=== PATIENT | female | born 1980 | race Caucasian/White ===

== ENCOUNTER 2017-02-03 15:15 | Emergency (ER) | payer OTHER ==
[~2017-02-03] VITALS: Ht 170.2 cm; Wt 123.4 kg
[2017-02-03 18:02] VITALS: BP 154/108
== END 2017-02-03 18:03 | disposition home or self-care (01) ==
LOC: ED 15:15
DX: S66.911A Strain of unspecified muscle, fascia and tendon at wrist and hand level, right hand, initial encounter (principal); L25.9 Unspecified contact dermatitis, unspecified cause; R03.0 Elevated blood-pressure reading, without diagnosis of hypertension; W19.XXXA Unspecified fall, initial encounter; Y93.89 Activity, other specified; Y92.89 Other specified places as the place of occurrence of the external cause; Y99.8 Other external cause status
CPT/HCPCS: A4570

== ENCOUNTER 2017-03-20 03:25 | Emergency (ER) | payer OTHER ==
[2017-03-20 05:22] LABS: BASOPHIL % 0.2 % (0-2); PLATELET COUNT 319 x10^3mcL (130-400); RED CELL DISTRIBUTION WIDTH 13.5 % (11.5-14.5)
[2017-03-20 05:30] LABS: CALCIUM 8.3 mg/dL (8.5-10.1); CARBON DIOXIDE 26.4 mmol/L (21-32); CHLORIDE SERUM 100 mmol/L (98-107); CREATININE SERUM 0.8 mg/dL (0.6-1.0); GFR1 > 60 mL/min; GLUCOSE SERUM 190 mg/dL (74-106); POTASSIUM SERUM 3.6 mmol/L (3.5-5.1); SODIUM SERUM 135 mmol/L (136-145)
[2017-03-20 05:35] LABS: ALKALINE PHOSPHATASE 77 U/L (46-116); ALT/SGPT 47 U/L (14-59); AST/SGOT 29 U/L (15-37); BILIRUBIN TOTAL 0.51 mg/dL (0.20-1.00); TOTAL PROTEIN, SERUM 7.4 g/dL (6.4-8.2)
[2017-03-20 05:36] LABS: ALBUMIN 3.1 g/dL (3.4-5.0)
[2017-03-20 06:47] VITALS: BP 142/83
== END 2017-03-20 06:47 | disposition home or self-care (01) ==
LOC: ED 03:25
PROVIDERS: Emergency Medicine
DX: N39.0 Urinary tract infection, site not specified (principal); K21.9 Gastro-esophageal reflux disease without esophagitis; E66.01 Morbid (severe) obesity due to excess calories; Z90.49 Acquired absence of other specified parts of digestive tract
CPT/HCPCS: 36415; J1885; Q0092

== ENCOUNTER 2017-10-12 21:29 | Emergency (ER) | payer OTHER ==
[~2017-10-12] VITALS: Ht 170.2 cm; Wt 119.7 kg
[2017-10-12 22:20] VITALS: Ht 170.2 cm; Wt 119.7 kg
[2017-10-12 23:28] VITALS: BP 140/90
== END 2017-10-12 23:28 | disposition home or self-care (01) ==
LOC: ED 21:29
DX: M25.531 Pain in right wrist (principal); Z90.49 Acquired absence of other specified parts of digestive tract

== ENCOUNTER 2018-09-11 08:47 | Emergency (ER) | payer OTHER ==
[~2018-09-11] VITALS: Ht 170.2 cm; Wt 122.5 kg
[2018-09-11 08:54] VITALS: Ht 170.2 cm; Wt 122.5 kg
[2018-09-11 10:14] LABS: CALCIUM 8.8 mg/dL (8.5-10.1); CARBON DIOXIDE 25.2 mmol/L (21-32); CHLORIDE SERUM 94 mmol/L (98-107); CREATININE SERUM 0.9 mg/dL (0.6-1.0); GFR1 > 60 mL/min; GLUCOSE SERUM 231 mg/dL (74-106); POTASSIUM SERUM 3.7 mmol/L (3.5-5.1); SODIUM SERUM 127 mmol/L (136-145)
[2018-09-11 10:18] LABS: ALKALINE PHOSPHATASE 91 U/L (46-116); ALT/SGPT 42 U/L (14-59); AST/SGOT 49 U/L (15-37); BILIRUBIN TOTAL 0.4 mg/dL (0.20-1.00)
[2018-09-11 10:18] LABS: UA SPECIFIC GRAVITY 1.025 (1.005-1.035); microscopic required? YES; urine erythrocyte 2+ (NEGATIVE)
[2018-09-11 10:23] LABS: ALBUMIN 2.8 g/dL (3.4-5.0); TOTAL PROTEIN, SERUM 8.3 g/dL (6.4-8.2)
[2018-09-11 12:18] LABS: BASOPHIL % 0.2 % (0-2); PLATELET COUNT 271 x10^3mcL (130-400); RED CELL DISTRIBUTION WIDTH 13.1 % (11.5-14.5)
[2018-09-11 12:42] VITALS: BP 115/78
== END 2018-09-11 12:42 | disposition home or self-care (01) ==
LOC: ED 08:47
PROVIDERS: Specialist
DX: N10 Acute pyelonephritis (principal); Z90.49 Acquired absence of other specified parts of digestive tract; Z98.890 Other specified postprocedural states
CPT/HCPCS: 87804; J0696; J1885

== ENCOUNTER 2018-09-16 20:42 | Emergency (ER) | payer OTHER ==
[~2018-09-16] VITALS: Ht 170.2 cm; Wt 124.7 kg
[2018-09-16 20:54] VITALS: Ht 170.2 cm; Wt 124.7 kg
[2018-09-16 22:28] VITALS: BP 139/96
== END 2018-09-16 22:28 | disposition home or self-care (01) ==
LOC: ED 20:42
DX: T36.1X5A Adverse effect of cephalosporins and other beta-lactam antibiotics, initial encounter (principal); Z90.49 Acquired absence of other specified parts of digestive tract; Z98.890 Other specified postprocedural states; Y92.89 Other specified places as the place of occurrence of the external cause
CPT/HCPCS: J7512; Q0163

== ENCOUNTER 2018-12-26 12:22 | Emergency (ER) | payer OTHER ==
[~2018-12-26] VITALS: Ht 170.2 cm; Wt 122.5 kg
[2018-12-26 12:26] VITALS: Ht 170.2 cm; Wt 122.5 kg
[2018-12-26 14:19] VITALS: BP 178/104
== END 2018-12-26 14:19 | disposition home or self-care (01) ==
LOC: ED 12:22
DX: S61.213A Laceration without foreign body of left middle finger without damage to nail, initial encounter (principal); Z90.49 Acquired absence of other specified parts of digestive tract; Z98.890 Other specified postprocedural states; W26.8XXA Contact with other sharp object(s), not elsewhere classified, initial encounter; Y93.89 Activity, other specified; Y92.89 Other specified places as the place of occurrence of the external cause; Y99.8 Other external cause status
CPT/HCPCS: J2001

== ENCOUNTER 2018-12-28 18:52 | Emergency (ER) | payer OTHER ==
[~2018-12-28] VITALS: Ht 170.2 cm; Wt 123.8 kg
[2018-12-28 19:03] VITALS: BP 127/95; Ht 170.2 cm; Wt 123.8 kg
== END 2018-12-28 19:35 | disposition home or self-care (01) ==
LOC: ED 18:52
DX: S61.211D Laceration without foreign body of left index finger without damage to nail, subsequent encounter (principal); Z90.49 Acquired absence of other specified parts of digestive tract; Z98.890 Other specified postprocedural states; X58.XXXD Exposure to other specified factors, subsequent encounter

== ENCOUNTER 2019-01-05 23:10 | Emergency (ER) | payer OTHER ==
[~2019-01-05] VITALS: Ht 170.2 cm; Wt 125.2 kg
[2019-01-05 23:13] VITALS: Ht 170.2 cm; Wt 125.2 kg
[2019-01-05 23:34] VITALS: BP 144/104
== END 2019-01-05 23:34 | disposition home or self-care (01) ==
LOC: ED 23:10
DX: S61.211D Laceration without foreign body of left index finger without damage to nail, subsequent encounter (principal); G60.0 Hereditary motor and sensory neuropathy; Z90.49 Acquired absence of other specified parts of digestive tract; W26.8XXD Contact with other sharp object(s), not elsewhere classified, subsequent encounter

== ENCOUNTER 2019-03-10 00:16 | Emergency (ER) | payer OTHER ==
[~2019-03-10] VITALS: Ht 170.2 cm; Wt 119.3 kg
[2019-03-10 00:19] VITALS: Ht 170.2 cm; Wt 119.3 kg
[2019-03-10 01:24] VITALS: BP 142/88
== END 2019-03-10 01:24 | disposition home or self-care (01) ==
LOC: ED 00:16
DX: L60.0 Ingrowing nail (principal); Z98.890 Other specified postprocedural states; Z90.49 Acquired absence of other specified parts of digestive tract
CPT/HCPCS: J2001